=== PATIENT | male | born 1975 | race American Indian/Alaskan Native ===

== ENCOUNTER 2022-02-27 19:19 | Emergency (ER) | payer SELFPAY ==
[2022-02-27 20:06] VITALS: BP 122/81
== END 2022-02-28 01:51 | disposition home or self-care (01) ==
LOC: ED 19:19
DX: K08.89 Other specified disorders of teeth and supporting structures (principal); Z53.21 Procedure and treatment not carried out due to patient leaving prior to being seen by health care provider

== ENCOUNTER 2022-03-01 20:06 | Emergency (ER) | payer SELFPAY ==
[2022-03-01 23:06] VITALS: BP 114/84
[2022-03-02] MEDS ORDERED: IBUPROFEN 800 MG TAB PO ONE (05:41)
[2022-03-02] MEDS ORDERED: HYDROcodone/ACETAMINOPHEN 5-325 MG TAB PO ONE (05:41)
--- NOTE | 2022-03-02 05:56 | Emergency Department Report ---
ED ENT HPI - General Chief complaint: Dental/Oral Stated complaint: TOOTHACHE PAIN Source: patient Mode of arrival: Ambulatory Limitations: No Limitations - History of Present Illness Initial comments: 46-year-old male presents with tooth pain. Patient reports upper dental pain x3 days, states it feels like a dry socket, pain is sharp and intense, sporadically". Has an upcoming appointment with a dentist but cannot wait until then. Symptoms are without fever, no difficulty swallowing, no headache no nausea vomiting abdominal pain no chest, no cough or congestion MD complaint: tooth pain -: days(s) (3) Location: tooth # 1 - 5 Severity scale (0 -10): 10 Quality: stabbing, sharp Consistency: intermittent Improves with: cold therapy Worsens with: none Context- Dental: history of dental caries, poor dental care, tooth knocked out Associated Symptoms: toothache. denies: fever, cough, pain with swallowing, sore throat, tinnitus, hearing loss, discharge from ear, rhinorrhea - Related Data Previous Rx's Medication Instructions Recorded Last Taken Type Acetaminophen/Codeine [Tylenol 1 tab PO Q6H PRN #10 tab 03/02/22 Unknown Rx /Codeine # 3 tab] Benzocaine/Menthol/Zinc Chlor 11.9 gm MM QID #1 03/02/22 Unknown Rx [Orajel 3X Toothache-Gum Gel] Ibuprofen [Motrin 800 MG tab] 800 mg PO ONCE PRN #20 tablet 03/02/22 Unknown Rx Penicillin Vk [Veetids TAB] 250 mg PO QID 7 Days #28 03/02/22 Unknown Rx Allergies Allergy/AdvReac Type Severity Reaction Status Date / Time No Known Allergies Allergy Unverified 02/27/22 20:02 ED Dental HPI - General Chief complaint: Dental/Oral Stated complaint: TOOTHACHE PAIN Source: patient Mode of arrival: Ambulatory Limitations: No Limitations - Related Data Previous Rx's Medication Instructions Recorded Last Taken Type Acetaminophen/Codeine [Tylenol 1 tab PO Q6H PRN #10 tab 03/02/22 Unknown Rx /Codeine # 3 tab] Benzocaine/Menthol/Zinc Chlor 11.9 gm MM QID #1 03/02/22 Unknown Rx [Orajel 3X Toothache-Gum Gel] Ibuprofen [Motrin 800 MG tab] 800 mg PO ONCE PRN #20 tablet 03/02/22 Unknown Rx Penicillin Vk [Veetids TAB] 250 mg PO QID 7 Days #28 03/02/22 Unknown Rx Allergies Allergy/AdvReac Type Severity Reaction Status Date / Time No Known Allergies Allergy Unverified 02/27/22 20:02 ED Review of Systems ROS: Stated complaint: TOOTHACHE PAIN Other details as noted in HPI Constitutional: see HPI. denies: chills, fever ENT: dental pain. denies: throat pain, congestion Respiratory: no symptoms reported Cardiovascular: as per HPI Endocrine: no symptoms reported Gastrointestinal: denies: abdominal pain, nausea, vomiting Musculoskeletal: denies: back pain Neurological: denies: headache, weakness, paresthesias ED Past Medical Hx - Past Medical History Previous Medical History?: No - Surgical History Additional Surgical History: left leg - Social History Smoking Status: Unknown if ever smoked - Medications Home Medications: Home Medications Medication Instructions Recorded Confirmed Last Taken Type Acetaminophen/Codeine [Tylenol 1 tab PO Q6H PRN #10 tab 03/02/22 Unknown Rx /Codeine # 3 tab] Benzocaine/Menthol/Zinc Chlor 11.9 gm MM QID #1 03/02/22 Unknown Rx [Orajel 3X Toothache-Gum Gel] Ibuprofen [Motrin 800 MG tab] 800 mg PO ONCE PRN #20 tablet 03/02/22 Unknown Rx Penicillin Vk [Veetids TAB] 250 mg PO QID 7 Days #28 03/02/22 Unknown Rx ED Physical Exam - General Limitations: No Limitations General appearance: alert, in no apparent distress - Head Head exam: Present: atraumatic - ENT ENT exam: Present: normal orophraynx, other (Diffuse dental caries with multiple deep decaying teeth, patient has a partial teeth impaction with missing teeth and tooth #5, no fluctuance or signs of an acute abscess.) - Neck Neck exam: Present: normal inspection, full ROM. Absent: tenderness, lymphadenopathy ED Course Vital Signs 03/01/22 20:06 Temperature 97.7 F Pulse Rate 71 Respiratory 15 Rate Blood Pressure 114/84 [Right] O2 Sat by Pulse 99 Oximetry ED Medical Decision Making - Medical Decision Making 46-year-old male presents with tooth pain. Patient reports upper dental pain x3 days, states it feels like a dry socket, pain is sharp and intense, sporadically". Has an upcoming appointment with a dentist but cannot wait until then. Symptoms are without fever, no difficulty swallowing, no headache no nausea vomiting abdominal pain no chest, no cough or congestion On exam there is no trismus, no difficulty speaking no drooling, no fever. Discharged with pain management antibiotics and follow-up with dentist. Critical care attestation.: If time is entered above; I have spent that time in minutes in the direct care of this critically ill patient, excluding procedure time. ED Disposition Clinical Impression: Dental implant pain Disposition: HOME / SELF CARE / HOMELESS Is pt being admited?: No Does the pt Need Aspirin: No Condition: Stable Prescriptions: Ibuprofen [Motrin 800 MG tab] 800 mg PO ONCE PRN #20 tablet PRN Reason: Pain , Severe (7-10) Benzocaine/Menthol/Zinc Chlor [Orajel 3X Toothache-Gum Gel] 11.9 gm MM QID #1 Acetaminophen/Codeine [Tylenol /Codeine # 3 tab] 1 tab PO Q6H PRN #10 tab PRN Reason: Pain , Severe (7-10) Penicillin Vk [Veetids TAB] 250 mg PO QID 7 Days #28
== END 2022-03-02 06:26 | disposition home or self-care (01) ==
LOC: ED 20:06
DX: M27.69 Other endosseous dental implant failure (principal)
CPT/HCPCS: 99282